=== PATIENT | male | born 1980 | race Two or more races ===

== ENCOUNTER 2023-03-30 18:22 | Emergency (ER) | payer OTHER ==
[~2023-03-30] VITALS: Ht 172.7 cm; Wt 86.0 kg
[2023-03-30] MEDS ORDERED: KETOROLAC TROMETHAMINE 60 MG/2 ML VIAL IM ONE (22:45)
[2023-03-30] MEDS ORDERED: ONDANSETRON HCL 4 MG/2 ML VIAL IM ONE (22:45)
[2023-03-30] MEDS ORDERED: HYDROmorphone HCL 2 MG/ML SYRINGE IM ONE (22:45)
[2023-03-30] MEDS ORDERED: LIDOCAINE 1% 10 ML VIAL SQ ONE (22:45)
[2023-03-30] MEDS ORDERED: CEPHALEXIN MONOHYDRATE 500 MG CAPSULE PO ONE (23:15)
[2023-03-30] MEDS ORDERED: DOXYCYCLINE HYCLATE 100 MG TABLET PO ONE (23:15)
[2023-03-30 23:58] VITALS: BP 126/80; PULSE 72; RESP 17; TEMP 98.4
== END 2023-03-30 23:59 | disposition home or self-care (01) ==
LOC: EMS 18:24
DX: K61.1 Rectal abscess (principal)
CPT/HCPCS: 99284; 10060; 96372; J1170; J1885; J2405; J3490